=== PATIENT | male | born 1985 ===

== ENCOUNTER 2021-07-10 17:32 | Emergency (ER) | payer MEDICAID ==
[~2021-07-10] VITALS: Ht 175.3 cm; Wt 69.8 kg
[2021-07-10 17:40] VITALS: BP 132/90
[2021-07-10] MEDS ORDERED: ketorolac trometh. 30mg/ml inj. IM ONE (17:55)
[2021-07-10] MEDS ORDERED: triamcinolone acetonide 40mg/ml inj IM ONE (17:55)
[2021-07-10] MEDS ORDERED: cyclobenzaprine 10mg tablet PO ONE (18:00)
[2021-07-10] MEDS ORDERED: NAPR-56 PO (18:03)
[2021-07-10] MEDS ORDERED: CYCL-1 PO (18:03)
== END 2021-07-10 18:14 | disposition home or self-care (01) ==
LOC: ER 17:33
DX: M50.123 Cervical disc disorder at C6-C7 level with radiculopathy (principal); Z88.8 Allergy status to other drugs, medicaments and biological substances; Z79.899 Other long term (current) drug therapy
CPT/HCPCS: 96372; 99284; J1885; J3301